=== PATIENT | female | born 1950 | race Caucasian/White ===

== ENCOUNTER 2017-12-01 01:40 | Emergency (ER) | payer MEDICARE ==
[2017-12-01] MEDS ORDERED: DECADRON 10MG INJ. IV ONE (02:42)
[2017-12-01] MEDS ORDERED: Sodium Chloride 0.9% 1000 ML 1,000 ML IV SCH (02:45)
--- NOTE | 2017-12-01 02:47 | ERPHSYRPT ---
- History of Present Illness Time Seen by Provider: 12/01/17 02:33 Source: patient Exam Limitations: no limitations Patient Subjective Stated Complaint: right side of neck and below ear are swollen Triage Nursing Assessment: pt A&O x3, c/o right sided neck swelling, throat hurts, ear hurts, denies breathing difficulty, afebrile, nausea, BP 149/99, doesn't appear to be in any distress Physician History: Pt started c/o sore throat, painful swallowing, nausea about one week ago. She was seen by her doctor yesterday, started on PO steroid. She noticed painful swelling in the right mandibular angle area, when eating tonight. She denies fever, chills, difficulty breathing, chest pain, vomiting, but nauseated. Timing/Duration: gradual onset Severity: severe ENT Location: ear (R), throat Prearrival Treatment: prescription meds Modifying Factors: Improves With: nothing Associated Symptoms: ear pain (R), No ear drainage, No hearing loss Allergies/Adverse Reactions: No Known Drug Allergies Allergy (Verified 12/01/17 02:38) Home Medications: Atorvastatin Calcium [Lipitor 20MG Tablet] 20 mg PO DAILY 12/01/17 [History] Bupropion HCl [Bupropion Xl] 300 mg PO DAILY 12/01/17 [History] Levothyroxine Sodium 50 Mcg [Synthroid 50 Mcg] 50 mcg PO DAILY 12/01/17 [ History] Montelukast Sodium 10 mg [Singulair 10 MG] 10 mg PO DAILY 12/01/17 [History] Omeprazole 40 mg PO DAILY 12/01/17 [History] Ropinirole HCl 0.5 mg [Requip 0.5 MG] 0.5 mg PO DAILY 12/01/17 [History] Sucralfate 1 gm [Carafate 1 GM] 1 gm PO DAILY 12/01/17 [History] Trazodone HCl 50 mg [Desyrel 50 mg] 50 mg PO DAILY 12/01/17 [History] - Review of Systems Constitutional: No Symptoms Ears, Nose, & Throat: Ear Pain Respiratory: Cough (chronic) Cardiac: No Chest Pain, No Edema All Other Systems: Reviewed and Negative - Past Medical History Respiratory History: COPD Psycho-Social History: Depression - Past Surgical History Past Surgical History: Yes Female Surgical History: Hysterectomy Other Surgical History: tummy tuck - Social History Smoking Status: Current every day smoker How long have you smoked: 50 years Exposure to second hand smoke: Yes Drug Use: none Patient Lives Alone: No - Nursing Vital Signs Nursing Vital Signs: Initial Vital Signs Temperature 97.9 F 12/01/17 02:25 Pulse Rate 63 12/01/17 02:25 Blood Pressure 149/99 12/01/17 02:25 O2 Sat by Pulse Oximetry 98 12/01/17 02:25 Pain Scale Pain Intensity 7 - Physical Exam General Appearance: no apparent distress Eye Exam: bilateral eye: PERRL Ear Exam: right ear: other (soft tissue swelling of the neck at the right mandibular abgle, no redness, no mass, or fluctuation, no skin lesion.), bilateral ear: canal normal, TM normal Nasal Exam: normal inspection Throat Exam: normal, pharynx normal, mandibular swelling (right mandibular angle ) Neck Exam: normal inspection, non-tender, supple, full range of motion, trachea midline, No JVD, No lymphadenopathy (R), No lymphadenopathy (L), No thyromegaly Cardiovascular/Respiratory Exam: chest non-tender, normal breath sounds, regular rate/rhythm, heart sounds normal, no respiratory distress, No no JVD Abdominal Exam: non-tender, soft, no organomegaly Neurologic Exam: alert, oriented x 3 Skin Exam: normal color, warm, dry, No rash SpO2 Interpretation: normal SpO2: 98 Oxygen Delivery: Room Air - Course Nursing assessment & vital signs reviewed: Yes - CT Exams Soft Tissue Neck CT Interpretation: Tele-radiologist Report, Other (right parotitis) Ordered Tests: Active Orders 24 hr Category Date Time Status IV Insertion STAT Care 12/01/17 02:40 Active CHEST 2 VIEWS (PA AND LAT) Stat Exams 12/01/17 02:47 Taken NECK WO CONTRAST [CT] Stat Exams 12/01/17 02:43 Taken CBC W DIFF Stat Lab 12/01/17 02:59 Completed CMP Stat Lab 12/01/17 02:59 Completed Erythrocyte Sedimentation Rate Stat Lab 12/01/17 02:59 Completed Lactic Acid Stat Lab 12/01/17 02:41 Completed Summit Screen Stat Lab 12/01/17 02:59 Completed Medication Summary Generic Name Dose Route Start Last Admin Trade Name Freq PRN Reason Stop Dose Admin Sodium Chloride 1,000 mls @ 100 mls/hr 12/01/17 02:45 12/01/17 02:58 Sodium Chloride 0.9% 1000 Ml IV 12/31/17 02:44 100 mls/hr .Q10H FIDELIA Administration Discontinued Medications Generic Name Dose Route Start Last Admin Trade Name Lio PRN Reason Stop Dose Admin Clindamycin Phosphate 600 mg 12/01/17 04:21 Cleocin Phosphate Iv 600 Mg/4 Ml IV 12/01/17 04:22 STAT ONE Dexamethasone Sodium Phosphate 10 mg 12/01/17 02:42 12/01/17 02:59 Decadron 10mg Inj. IV 12/01/17 02:43 10 mg STAT ONE Administration Dexamethasone Sodium Phosphate Confirm 12/01/17 02:58 Decadron 10mg Inj. Administered 12/01/17 02:59 Dose 10 mg .ROUTE .[email or web address] ONE Lab/Rad Data: Laboratory Result Diagrams 12/01/17 02:59 12/01/17 02:59 Laboratory Results 12/01/17 12/01/17 12/01/17 Range/Units 02:59 02:59 02:59 WBC (4.0-10.5) K/mm3 RBC (4.1-5.4) M/mm3 Hgb (12.0-16.0) gm/dl Hct (35-47) % MCV (78-100) fl MCH (26-32) pg MCHC (32-36) g/dl RDW (11.5-14.0) % Plt Count (150-450) K/mm3 MPV (6-9.5) fl Gran % (36.0-66.0) % Eos # (Auto) (0-0.5) Absolute Lymphs (auto) (1.0-4.6) Absolute Monos (auto) (0.0-1.3) Lymphocytes % (24.0-44.0) % Monocytes % (0.0-12.0) % Eosinophils % (0.00-5.0) % Basophils % (0.0-0.4) % Absolute Granulocytes (1.4-6.9) Basophils # (0-0.4) ESR (0-20) mm/hr Sodium 136 L (137-145) mmol/L Potassium 3.3 L (3.5-5.1) mmol/L Chloride 103 (98-107) mmol/L Carbon Dioxide 28 (22-30) mmol/L Anion Gap 9.5 (5-15) MEQ/L BUN 11 (7-17) mg/dL Creatinine 0.62 (0.52-1.04) mg/dL Estimated GFR > 60.0 ML/MIN Glucose 99 (74-106) mg/dL Lactic Acid (0.4-2.0) Calcium 9.2 (8.4-10.2) mg/dL Total Bilirubin 0.20 (0.2-1.3) mg/dL AST 13 L (14-36) U/L ALT 10 (0-35) U/L Alkaline Phosphatase 101 (38-126) U/L Serum Total Protein 6.8 (6.3-8.2) g/dL Albumin 3.9 (3.5-5.0) g/dL Monoscreen NEGATIVE (Negative) Group A Strep Antibody NEGATIVE (NEGATIVE) 12/01/17 12/01/17 Range/Units 02:59 02:41 WBC 13.6 H (4.0-10.5) K/mm3 RBC 4.11 (4.1-5.4) M/mm3 Hgb 13.5 (12.0-16.0) gm/dl Hct 38.9 (35-47) % MCV 94.6 (78-100) fl MCH 32.8 H (26-32) pg MCHC 34.7 (32-36) g/dl RDW 12.4 (11.5-14.0) % Plt Count 178 (150-450) K/mm3 MPV 10.0 H (6-9.5) fl Gran % 75.0 H (36.0-66.0) % Eos # (Auto) 0 (0-0.5) Absolute Lymphs (auto) 2.02 (1.0-4.6) Absolute Monos (auto) 1.36 H (0.0-1.3) Lymphocytes % 14.9 L (24.0-44.0) % Monocytes % 10.0 (0.0-12.0) % Eosinophils % 0.0 (0.00-5.0) % Basophils % 0.1 (0.0-0.4) % Absolute Granulocytes 10.17 H (1.4-6.9) Basophils # 0.02 (0-0.4) ESR 45 H (0-20) mm/hr Sodium (137-145) mmol/L Potassium (3.5-5.1) mmol/L Chloride (98-107) mmol/L Carbon Dioxide (22-30) mmol/L Anion Gap (5-15) MEQ/L BUN (7-17) mg/dL Creatinine (0.52-1.04) mg/dL Estimated GFR ML/MIN Glucose (74-106) mg/dL Lactic Acid 0.7 (0.4-2.0) Calcium (8.4-10.2) mg/dL Total Bilirubin (0.2-1.3) mg/dL AST (14-36) U/L ALT (0-35) U/L Alkaline Phosphatase (38-126) U/L Serum Total Protein (6.3-8.2) g/dL Albumin (3.5-5.0) g/dL Monoscreen (Negative) Group A Strep Antibody (NEGATIVE) - Progress Progress: improved Progress Note: 12/01/17 04:31 Pt was given iv Decadron 10 mg, 600 mg iv Clindamycin, improved, denies difficulty swallowing, no fever, or severe headaches, stable. She was educated about her results and the nature of her disease, will discharge her to follow up with her physician in 2-3 days, return if severe pain, swelling, difficulty swallowing, severe headaches, vomiting, fever> 102 F. Counseled pt/family regarding: lab results, diagnosis, need for follow-up, rad results - Departure Time of Disposition: 04:34 Departure Disposition: Home Clinical Impression: Parotitis Condition: Stable Critical Care Time: No Referrals: Provider,Unknown [Primary Care Provider] - Instructions: Parotitis, Salivary Gland Infection (DC) Additional Instructions: Rest x 2-3 days, drink plenty of fluids, follow up with your physician in 2-3 days, return if severe pain, vomiting, difficulty swallowing, headaches, high fever> 102 F! Prescriptions: Clindamycin HCl [Cleocin HCl] 300 mg PO QID #40 capsule
[2017-12-01] MEDS ORDERED: DECADRON 10MG INJ. ONE (02:58)
[2017-12-01] MEDS ORDERED: Sodium Chloride 0.9% 1000 ML 1,000 ML ONE (02:58)
[2017-12-01 03:05] LABS: BASOPHIL % 0.1 % (0.0-0.4); Basophil (Absolute #) 0.02 (0-0.4); Eosinophil (Absolute #) 0 (0-0.5); Granulocyte Absolute (ANC) 10.17 (1.4-6.9); Hematocrit 38.9 % (35-47); Hemoglobin 13.5 gm/dl (12.0-16.0); Lymphocyte (Absolute #) 2.02 (1.0-4.6); Lymphocytes % 14.9 % (24.0-44.0); Mean Cell Volume 94.6 fl (78-100); Mean Corpuscular Hemoglobin 32.8 pg (26-32); Mean Corpuscular Hgb Concent. 34.7 g/dl (32-36); Monocyte (Absolute #) 1.36 (0.0-1.3); Platelet Count 178 K/mm3 (150-450); Red Blood Count 4.11 M/mm3 (4.1-5.4); Red Cell Distribution Width 12.4 % (11.5-14.0); White Blood Count 13.6 K/mm3 (4.0-10.5)
[2017-12-01 03:20] LABS: ALBUMIN 3.9 g/dL (3.5-5.0); ALKALINE PHOSPHATASE 101 U/L (38-126); ANION GAP 9.5 MEQ/L (5-15); BLOOD UREA NITROGEN 11 mg/dL (7-17); CHLORIDE 103 mmol/L (98-107); Calcium 9.2 mg/dL (8.4-10.2); Carbon Dioxide 28 mmol/L (22-30); Creatinine 1 0.62 mg/dL (0.52-1.04); Glucose 99 mg/dL (74-106); Potassium 3.3 mmol/L (3.5-5.1); SGOT/AST 13 U/L (14-36); SGPT/ALT 10 U/L (0-35); SODIUM 136 mmol/L (137-145); Total Protein 6.8 g/dL (6.3-8.2)
[2017-12-01 03:32] LABS: Erythrocyte Sedimentation Rate 45 mm/hr (0-20)
[2017-12-01] MEDS ORDERED: Cleocin Phosphate IV 600 MG/4 ML IV ONE (04:21)
[2017-12-01] MEDS ORDERED: Cleocin Phosphate IV 600 MG/4 ML ONE (04:28)
[2017-12-01] MEDS ORDERED: CLINDAMYCIN-D5W 600 MG/50 ML*** 600 MG/50 ML BAG IV STA (04:30)
[2017-12-01 05:02] VITALS: BP 144/75; PULSE 63; O2SAT 96
--- NOTE | 2017-12-01 09:43 | XRAY ---
Indication: Cough. Comparison: None PA/lateral chest hyperinflated with chronic lung markings and a few incidental calcified granulomas. No focal infiltrate, consolidation, or large effusion. Heart is not enlarged. Small hiatal hernia suggested. Bony thorax intact with mild multilevel degenerative spondylosis and mild dextroscoliosis. Impression: Nonacute chest with chronic features.
--- NOTE | 2017-12-01 09:47 | XRAY ---
Indication: Right neck pain/swelling. Multiple contiguous axial images obtained through the neck without contrast as ordered. Comparison: None Patient is edentulous. Enlarged right parotid gland with minimal stranding favoring parotiditis. Remaining left parotid and submandibular glands are unremarkable. Small centimeter/subcentimeter cervical lymph nodes bilaterally. Mild carotid calcifications, right greater than left. Supra-and infraglottic airway is widely patent. Visualized cervical spine intact with mild C5-C7 degenerative disc disease. Minimal mucosal thickening of the inferior right maxillary sinus. Remaining visualized paranasal sinuses and mastoid air cells are clear. Base of the brain unremarkable. Lung apices demonstrates pulmonary emphysema and right upper lobe calcified granuloma. Impression: 1. Right parotiditis. 2. Incidental minimal right maxillary sinus disease, mild C5-C7 degenerative disc disease, and pulmonary emphysema. Comment: Preliminary interpretation was made by [facility]. No discrepancy. CT DI 6.99
== END 2017-12-01 05:21 | disposition home or self-care (01) ==
LOC: ED 01:40
DX: K11.20 Sialoadenitis, unspecified (principal); H92.09 Otalgia, unspecified ear; F32.9 Major depressive disorder, single episode, unspecified; Z72.0 Tobacco use; Z79.899 Other long term (current) drug therapy
CPT/HCPCS: 36415; 70490; 71046; 80053; 83605; 85025; 85652; 86308; 87651; 96360; 96361; 96374; 99284; J1100

== ENCOUNTER 2018-12-07 21:01 | Emergency (ER) | payer MEDICARE ==
--- NOTE | 2018-12-07 22:13 | ERPHSYRPT ---
- History of Present Illness Time Seen by Provider: 12/07/18 22:06 Source: patient Exam Limitations: no limitations Patient Subjective Stated Complaint: Left eye injury (weed killer in eye) Triage Nursing Assessment: Patient ambulated into ED and transferred self to bed. Patient A+O X 3. Patient's skin pink, warm and dry. Patient complains of left eye irritation after weed killer was splashed in her eye around 2030. Patient states she did call poisen control and was instructed to irrigate eye with eye wash solution and instructed patient if she felt something sharp in eye to come to ED. Patient states constant dull scratchy feeling to left eye. Left eye noted to be slightly swollen and red. Physician History: Insect distracted her and she accidentally got weed spray in L eye. Washed it out twice and then called poison control; told to come to ER if it was burning or sharp pain. Allergies/Adverse Reactions: No Known Drug Allergies Allergy (Verified 12/07/18 21:11) Home Medications: Atorvastatin Calcium [Lipitor 20MG Tablet] 20 mg PO DAILY 12/01/17 [History] Bupropion HCl [Bupropion Xl] 300 mg PO DAILY 12/01/17 [History] Levothyroxine Sodium 50 Mcg [Synthroid 50 Mcg] 50 mcg PO DAILY 12/01/17 [ History] Montelukast Sodium 10 mg [Singulair 10 MG] 10 mg PO DAILY 12/01/17 [History] Omeprazole 40 mg PO DAILY 12/01/17 [History] Ropinirole HCl 0.5 mg [Requip 0.5 MG] 0.5 mg PO DAILY 12/01/17 [History] Sucralfate 1 gm [Carafate 1 GM] 1 gm PO DAILY 12/01/17 [History] Trazodone HCl 50 mg [Desyrel 50 mg] 50 mg PO DAILY 12/01/17 [History] Hx Influenza Vaccination/Date Given: Yes Hx Pneumococcal Vaccination/Date Given: Yes Immunizations Up to Date: Yes - Past Medical History Pertinent Past Medical History: Yes Neurological History: No Pertinent History ENT History: No Pertinent History Cardiac History: No Pertinent History Respiratory History: COPD Endocrine Medical History: No Pertinent History Musculoskeletal History: No Pertinent History GI Medical History: No Pertinent History History: No Pertinent History Psycho-Social History: Depression Female Reproductive Disorders: No Pertinent History - Past Surgical History Past Surgical History: Yes Neuro Surgical History: No Pertinent History Cardiac: No Pertinent History Respiratory: No Pertinent History Gastrointestinal: No Pertinent History Female Surgical History: Hysterectomy Other Surgical History: tummy tuck - Social History Smoking Status: Current every day smoker How long have you smoked: years Exposure to second hand smoke: Yes Drug Use: none Patient Lives Alone: No - Female History Hx Last Menstrual Period: hysterectomy Hx Now: No - Nursing Vital Signs Nursing Vital Signs: Initial Vital Signs Temperature 97.9 F 12/07/18 21:11 Pulse Rate 72 12/07/18 21:11 Respiratory Rate 18 12/07/18 21:11 Blood Pressure 154/88 12/07/18 21:11 O2 Sat by Pulse Oximetry 97 12/07/18 21:11 Pain Scale Pain Intensity 7 - Physical Exam Vision Acuity Degree Evaluation Phase: Uncorrected Vision Acuity Right Eye: 20/30 Vision Acuity Left Eye: 20/50 SpO2: 97 Ordered Tests: Medication Summary Generic Name Dose Route Start Last Admin Trade Name Freq PRN Reason Stop Dose Admin Tobramycin/Dexamethasone 0 ml 12/08/18 10:00 12/07/18 22:24 Tobradex Eye Drops OP 01/07/19 09:59 Not Given BID FIDELIA Discontinued Medications Generic Name Dose Route Start Last Admin Trade Name Freq PRN Reason Stop Dose Admin Tobramycin/Dexamethasone Confirm 12/07/18 22:15 Tobradex Eye Drops Administered 12/07/18 22:16 Dose 2.5 ml .ROUTE .STK-MED ONE - Departure Departure Disposition: Home Clinical Impression: Eye irritation Condition: Stable Critical Care Time: No Referrals: ROSENDO ARIAS NP [Primary Care Provider] - Additional Instructions: Use Tobradex eye drops - one or two drops in Left eye twice a day for 4 days. Follow up with primary care as needed or with eye doctor is not improving in next two days or if getting more irritated in the left eye.
[2018-12-07 22:42] VITALS: BP 165/90; PULSE 65
[2018-12-07 22:47] VITALS: O2SAT 97
== END 2018-12-07 22:44 | disposition home or self-care (01) ==
LOC: ED 21:01
DX: T60.3X1A Toxic effect of herbicides and fungicides, accidental (unintentional), initial encounter (principal); H57.9 Unspecified disorder of eye and adnexa
CPT/HCPCS: 99283; A9270-GY